=== PATIENT | male | born 1980 | race Caucasian/White ===

== ENCOUNTER 2022-09-05 08:44 | Outpatient (CLI) | payer OTHER, SELFPAY ==
[2022-09-05 18:58] LABS: Alanine Aminotransferase 19 U/L (6-50); Alkaline Phosphatase 85 U/L (38-126); Anion Gap 3 mmol/L (8-16); Aspartate Amino Transferase 50 U/L (17-59); Bilirubin,Total 2.7 mg/dL (0.2-1.3); Blood Urea Nitrogen 13 mg/dL (9-20); Carbon Dioxide 31 mmol/L (22-30); Chloride 102 mmol/L (98-107); Cholesterol 143 mg/dL (0-200); Estimated Glomerular Filt Rate > 60; Glucose 92 mg/dL (65-110); HDL Direct 50 mg/dL; Potassium 4.3 mmol/L (3.4-5.0); Sodium 136 mmol/L (137-145); Triglycerides 96 mg/dL (<150)
[2022-09-05 19:09] LABS: LDL Cholesterol Direct 63 mg/dL
== END 2022-09-05 08:45 | disposition home or self-care (01) ==
LOC: ANHBWCLAB 08:45
PROVIDERS: PCP Family Medicine; Visit Provider Family Medicine
DX: Z00.00 Encounter for general adult medical examination without abnormal findings (principal)
CPT/HCPCS: 36415; 80053; 80061

== ENCOUNTER 2024-12-04 16:46 | Emergency (ER) | payer OTHER, SELFPAY ==
--- NOTE | ~2024-12-04 | XR_ITS ---
XR shoulder LT min 2V DATE: 12/04/2024 17:39 INDICATION: Left shoulder pain TECHNIQUE: 4 views COMPARISON: None FINDINGS: No fracture, dislocation, periosteal reaction or bone destruction. Normal alignment and pre servation of joint spaces at the acromioclavicular and glenohumeral joints. No abnormal soft tissue c alcification. IMPRESSION: Negative Reviewed, dictated and finalized at location A. IMPRESSION: Negative
--- NOTE | ~2024-12-04 | XR_ITS ---
XR_[id number]_CR DATE: 12/04/2024 17:40 INDICATION: Neck pain TECHNIQUE: AP, open-mouth, odontoid and lateral views COMPARISON: 11/18/2007 cervical spine FINDINGS: C1 and C2 are normally aligned and the odontoid process is intact. No fracture or dislocati on or locked facet or prevertebral soft tissue swelling. There is minimal loss of height at C5-6 inte rspace. Remaining cervical interspaces are well preserved. Bilateral uncovertebral joint spurring. There are plates and screws along the mandibular symphysis and both mandibular rami. Multiple plates and screws are noted at the facial bones as well. IMPRESSION: Mild loss of disc space height and bilateral uncovertebral joint spurring at C5-6 No fracture or dislocation or locked facet Postoperative change of the mandible and facial bones Reviewed, dictated and finalized at Location A. Reviewed, dictated and finalized at location A. IMPRESSION: Mild loss of disc space height and bilateral uncovertebral joint sp urring at C5-6 No fracture or dislocation or locked facet Postoperative change of the mandible and facial bones
--- OUTSIDE RECORDS SUMMARY | 2024-12-04 16:48 | XMS_ITS | Referral Summary ---
Author Organization [facility] [address] Address [address] [place] [address] Care Team Providers Care Manager Field Investigations Name Role Phone Arthur Marcus MD Primary Care Provider [phone] Allergies Active Allergy Reactions Criticality Noted Date Comments Cefazolin Rash Medium Penicillins Chest tightness,Headache Medium 12/19/2019 Vancomycin Rash Medium 12/19/2019 Medications No known medications Active Problems No known active problems Social History Tobacco Use Types Packs/Day Years Used Date Smoking Tobacco: Never Smokeless Tobacco: Never Personal Safety Answer Date Recorded Getting School Help Needed Not on file 11/28 Sex and Gender Information Value Date Recorded Sex Assigned at Not on file 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 Gender Identity Not on file Sexual Orientation Not on file Last Filed Vital Signs Vital Sign Reading Time Taken Comments Blood Pressure 128/84 12/19/2019 3:22 PM CDT Pulse 63 12/19/2019 3:22 PM CDT Temperature 36.7 C (98 F) 12/19/2019 3:22 PM CDT Respiratory Rate 12 12/19/2019 3:22 PM CDT Oxygen Saturation 99% 12/19/2019 3:22 PM CDT Inhaled Oxygen Concentration - - Weight 77.6 kg (171 lb) 12/19/2019 3:22 PM CDT Height 190.5 cm (6' 3 ) 12/19/2019 3:22 PM CDT Body Mass Index 21.37 12/19/2019 3:22 PM CDT Plan of Treatment Not on file Insurance AETNA SIG [id number] Care Teams Manager Field Investigations Relationship Specialty Start Date End Date Arthur Marcus MD [address] [place] [address] PCP - General Family Medicine 12/19/19
--- OUTSIDE RECORDS SUMMARY | 2024-12-04 16:48 | XMS_ITS | Continuity of Care Document ---
Author Organization [facility] Address [address] [place] [address] Phone Care Team Providers Care Head Loader Name Role Phone Lawson Cavazos MD Unavailable Unavailable Procedures Procedure Date Office Consultation Advance Directives Directive Yes / No Effective Date File Name No Information Encounters Encounter Description Practice Location Reason(s) For Visit Diagnoses Date Provider Providers Copied on Encounter Office Consultation [facility], [address], [place], [place], [id number], [place] tel:[phone] [facility] No Information [address] [facility] [place], [address], [place]. tel:[phone] Referring Provider: Black Atkins OD, [facility] [address] [place], [address]. tel:[phone] Family History Family Member Type Diagnosis Age At Onset No Information Payers Payer name Insurance type Covered alliance party ID Authoriza tion(s) No Information Social History [...]
--- OUTSIDE RECORDS SUMMARY | 2024-12-04 16:48 | XMS_ITS | Clinical Summary ---
Author Organization [facility] [address] Address [address] [place] [address] Care Team Providers Care Thermal Cutter Helper Name Role Phone Arthur Marcus MD Primary Care Provider [phone] Allergies Active Allergy Reactions Criticality Noted Date Comments Cefazolin Rash Medium Penicillins Chest tightness,Headache Medium 12/19/2019 Vancomycin Rash Medium 12/19/2019 Medications No known medications Active Problems No known active problems Medical History Medical History Date Comments [place] (HCC) Social History Tobacco Use Types Packs/Day Years Used Date Smoking Tobacco: Never Smokeless Tobacco: Never Personal Safety Answer Date Recorded Getting School Help Needed Not on file 11/28 Sex and Gender Information Value Date Recorded Sex Assigned at Not on file 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
--- OUTSIDE RECORDS SUMMARY | 2024-12-04 16:51 | XMS_ITS | Continuity of Care Document ---
Author Organization [facility] Address [address] [place] [address] Phone Care Team Providers Care Steward/Stewardess Dining Room Name Role Phone Lawson Cavazos MD Unavailable Unavailable Procedures Procedure Date Office Consultation Advance Directives Directive Yes / No Effective Date File Name No Information Encounters Encounter Description Practice Location Reason(s) For Visit Diagnoses Date Provider Providers Copied on Encounter Office Consultation [facility], [address], [place], [place], [id number], [place] tel:[phone] [facility] No Information [address] [facility] [place], [address], [place]. tel:[phone] Referring Provider: Black Atkins OD, [facility] [address] [place], [address]. tel:[phone] Family History Family Member Type Diagnosis Age At Onset No Information Payers Payer name Insurance type Covered constitution party ID Authoriza tion(s) No Information Social [...]
[2024-12-04 16:54] VITALS: BP 133/81; PULSE 63; RESP 20; TEMP 36.7; O2SAT 99
--- NOTE | 2024-12-04 17:31 | ED_ITS ---
HPI - Extremity Problem General Chief complaint: Extremity Problem,Nontraumatic Stated complaint: left shoulder and neck pain Source: patient and family Mode of arrival: ambulatory Limitations: no limitations History of Present Illness HPI Narrative: Patient presents for evaluation of left-sided neck and left shoulder pain. Symptom onset 3 days ago. He woke from sleep with his symptoms. He has rooms he slept on his neck wrong. States the pain is shooting and he rates it 7/10 in severity. No history of similar symptoms. 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 With that said, he is not aware of any specific precipitating injury. He tried taking Aleve for symptoms without considerable improvement thereafter. Movement makes his symptoms worse. He went to a chiropractor earlier today, who adjusted his neck. He reports decreased ROM of left shoulder. Related Data Allergies Allergy/AdvReac Type Severity Reaction Status Date / Time potassium chloride Allergy Intermediate Hives / Verified 12/04/24 17:04 Red Face Penicillins Allergy Mild tight chest Verified 12/04/24 17:04 paroxetine Allergy Unknown Nausea Verified 12/04/24 17:04 vancomycin Allergy Unknown unknown Verified 12/04/24 17:04 CEFAZOLIN SODIUM Allergy Unknown unknown Uncoded 08/06/22 10:04 Review of Systems Review of Systems: CONSTITUTIONAL: Denies fever, chills, or sweats. EYES: Denies visual changes, redness, or discharge. ENT: Denies rhinorrhea, congestion, sore throat, or otalgia. CARDIOVASCULAR: Denies chest pain, palpitations, or edema. RESPIRATORY: Denies cough or dyspnea. GASTROINTESTINAL: Denies abdominal pain, nausea, vomiting, or diarrhea. GENITOURINARY: Denies dysuria or hematuria. SKIN: Denies rash or itching. MUSCULOSKELETAL: Reports left-sided neck pain and left shoulder pain. NEUROLOGIC: Denies headache, numbness, dizziness, or weakness. PSYCHIATRIC: Denies anxiety or depression. [facility] Past Medical History Medical History History of cancer History of facial fracture Surgical History Surgical History History of facial surgery Family History Family History Grandparent Diabetes mellitus Social History Social History Smoking status: Never smoker Second hand tobacco smoke exposure: No Alcohol intake: current Alcohol use details: Beer Substance use type: does not use Lack of Transportation: No Lack of Food: Never True Current Housing: I Do Not Have Housing Concerned About Future Housing: No Difficulty Paying Gas/Electric Bills: No Difficulty Paying for Meds: No Currently Unemployed: No Education: Associate Degree Difficulty w/ Childcare or Family Care: No Living arrangements: alone Occupation/Education: occupation Additional occupation/education comments: [employer] Gender identity (if verbalized by the patient): Male Agree to blood products: Yes Exam Narrative: GENERAL: Well-appearing, well-nourished, and in no acute distress. HEAD: Normocephalic, atraumatic. EYES: PERRLA and EOMI. ENT: Nares clear, no rhinorrhea or epistaxis. Mucous membranes moist. Oropharynx without tonsillar hypertrophy exudate or other lesions. Bilateral TMs pearly recio nonbulging NECK: Supple. No adenopathy or masses. No carotid bruits or JVD. No tenderness in the midline or paraspinous muscles of the cervical spine CHEST: Clear to auscultation. No respiratory distress. No wheezes rales or rh onchi HEART: Regular rate and rhythm. No murmur heard. Normal peripheral pulses. ABDOMEN: Soft, nontender, nondistended, normal active bowel sounds. EXTREMITIES: Tenderness in the left shoulder. There is decreased range of motion left shoulder secondary to pain. There is no crepitus or deformity. SKIN: Warm, dry, no rash. NEURO: No focal deficits. Alert and oriented x3. PSYCH: Normal mood and affect. Course Course Emergency Course: This is a 44-year-old male who presented for evaluation of neck and shoulder pain. X-ray showed bone spurs in the cervical spinal region with some loss of bone height. He has already tried NSAIDs at home. Will try Medrol Dosepak and Flexeril. Advised on application of warm moist heat. Topical products such as Chun-Peng or icy Hot may help. Follow with primary provider. Go to the emergency department for worsening symptoms. Patient agreement with plan of care. Level of Care: Express Care Visit Vital Signs Vital signs: Vital Signs Temperature 36.7 C 12/04/24 16:54 Pulse Rate 63 12/04/24 16:54 Respiratory Rate 20 12/04/24 16:54 Blood Pressure 133/81 12/04/24 16:54 Pulse Oximetry 99 12/04/24 16:54 Oxygen Delivery Room Air 12/04/24 16:54 Temperature 36.7 C 12/04/24 16:54 Pulse Rate 63 12/04/24 16:54 Respiratory Rate 20 12/04/24 16:54 Blood Pressure 133/81 12/04/24 16:54 Pulse Oximetry 99 12/04/24 16:54 Oxygen Delivery Room Air 12/04/24 16:54 MDM - Extremity (Nontraumatic) Imaging Data Radiologist's impression: [id number]_[id number] DATE: 12/04/2024 17:40 INDICATION: Neck pain TECHNIQUE: AP, open-mouth, odontoid and lateral views COMPARISON: 11/18/2007 cervical spine FINDINGS: C1 and C2 are normally aligned and the odontoid process is intact. No fracture or dislocation or locked facet or prevertebral soft tissue swelling. T here is minimal loss of height at C5-6 interspace. Remaining cervical interspaces are well preserved. Bilateral uncovertebral joint spurring. There are plates and screws along the mandibular symphysis and both mandibular rami. Multiple plates and screws are noted at the facial bones as well. IMPRESSION: Mild loss of disc space height and bilateral uncovertebral joint spurring at C5-6 No fracture or dislocation or locked facet Postoperative change of the mandible and facial bones XR shoulder LT min 2V DATE: 12/04/2024 17:39 INDICATION: Left shoulder pain TECHNIQUE: 4 views COMPARISON: None FINDINGS: No fracture, dislocation, periosteal reaction or bone destruction. Normal alignment and preservation of joint spaces at the acromioclavicular and glenohumeral joints. No abnormal soft tissue calcification. IMPRESSION: Negative Discharge Plan Discharge Clinical Impression: Cervical radiculopathy Patient Disposition: Home, Self-Care Condition: Stable Instructions: Antibiotic Form, Cervical Radiculopathy (ED) Patient Language: [place] Citizen Prescriptions: New methylprednisolone 4 mg tablets,dose pack See Rx Instructions .ROUTE .COMPLEX Qty: 21 0RF Rx Instructions: for 6 days cyclobenzaprine 10 mg tablet 10 mg PO TID PRN (Reason: muscle spasm) Qty: 15 0RF Follow-up/Referrals: Black Phan MD [Primary Care Provider] - Stand Alone Forms: Work/School Release IP Time of Disposition: 17:58
== END 2024-12-04 18:03 | disposition home or self-care (01) ==
PROVIDERS: Emergency Provider Nurse Practitioner; PCP Family Medicine
DX: M54.12 Radiculopathy, cervical region (principal)
CPT/HCPCS: 72040; 73030; 99214; G0463

== ENCOUNTER 2025-01-11 09:18 | Outpatient (CLI) | payer OTHER, SELFPAY ==
--- NOTE | ~2025-01-11 | XR_ITS ---
3 VIEWS LUMBAR SPINE Ordering provider: Black Phan MD History: . M54.50 - Low back pain, unspecified . Comparison: None. FINDINGS: VERTEBRAL BODIES: Loss of height is seen in L3 which may indicate acute or chronic fracture. .. Posto perative changes with levoscoliosis. DISK SPACES: Normal. SOFT TISSUES: Normal. IMPRESSION: Compression fracture of L3 which may be acute or chronic. Postoperative changes at the levels of T12, L1 and L2. Reviewed, dictated and finalized at location A.
== END 2025-01-11 09:19 | disposition home or self-care (01) ==
PROVIDERS: PCP Family Medicine; Visit Provider Family Medicine
DX: S32.030A Wedge compression fracture of third lumbar vertebra, initial encounter for closed fracture (principal); X58.XXXA Exposure to other specified factors, initial encounter
CPT/HCPCS: 72100

== ENCOUNTER 2025-01-11 09:52 | Outpatient (CLI) | payer OTHER, SELFPAY ==
[2025-01-11 10:12] LABS: Basophils Absolute Auto 0.1 K/mm3 (0.0-0.1); Basophils Percent Auto 0.9 % (0.2-1.2); Eosinophils Absolute Auto 0.3 K/mm3 (0-0.3); Eosinophils Percent Auto 3.7 % (0-4.4); Hematocrit 48.2 % (42.0-52.0); Hemoglobin 15.7 g/dL (14.0-18.0); Immature Granulocyte Absolute 0.03 K/mm3 (0.00-0.031); Immature Granulocyte Percent A 0.4 % (0-0.5); Lymphocytes Absolute Auto 1.89 K/mm3 (0.9-3.2); Lymphocytes Percent Auto 24.2 % (18.3-44.2); Mean Corpuscular HGB Conc 32.6 g/dl (32-36); Mean Corpuscular Hemoglobin 29.9 pg (26-34); Mean Corpuscular Volume 91.8 fl (80-100); Mean Platelet Volume 9.7 fl (7.4-10.4); Monocytes Absolute Auto 0.6 K/mm3 (0.1-0.6); Monocytes Percent Auto 7.4 % (2.6-8.5); Neutrophils Absolute Auto 4.9 K/mm3 (1.3-6.7); Neutrophils Percent Auto 63.4 % (45.5-73.1); Platelet Count Result 336 k/mm3 (150-375); Red Blood Count 5.25 M/mm3 (4.6-6.20); Red Cell Distribution Width 12.9 % (11.5-14.5); White Blood Count 7.8 K/mm3 (4.5-10.0)
[2025-01-11 10:23] LABS: Alanine Aminotransferase 24 U/L (6-50); Albumin Level 4.4 g/dL (3.5-5.1); Alkaline Phosphatase 107 U/L (38-126); Anion Gap 7 mmol/L (4-12); Aspartate Amino Transferase 26 U/L (17-59); Bilirubin,Total 2.6 mg/dL (0.2-1.3); Blood Urea Nitrogen 18 mg/dL (9-20); Calcium 9.4 mg/dL (8.4-10.2); Carbon Dioxide 29 mmol/L (22-30); Chloride 104 mmol/L (98-107); Cholesterol 155 mg/dL (0-200); Estimated Glomerular Filt Rate > 60; Glucose 95 mg/dL (65-110); HDL Direct 51 mg/dL; Potassium 4.2 mmol/L (3.4-5.0); Sodium 140 mmol/L (137-145); Triglycerides 103 mg/dL (<150)
[2025-01-11 10:34] LABS: LDL Cholesterol Direct 70 mg/dL
--- OUTSIDE RECORDS SUMMARY | 2025-01-11 11:02 | XMS_ITS | Referral Summary ---
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
--- OUTSIDE RECORDS SUMMARY | 2025-01-11 11:02 | XMS_ITS | Continuity of Care Document ---
Author Organization [facility] Address [address] [place] [address] Phone Care Team Providers Care Jira Administrator Name Role Phone Lawson Cavazos MD Unavailable Unavailable Procedures Procedure Date Office Consultation Advance Directives Directive Yes / No Effective Date File Name No Information Encounters Encounter Description Practice Location Reason(s) For Visit Diagnoses Date Provider Providers Copied on Encounter [facility] [address], [place], [place], [address], [place] tel:[phone] [facility] No Information [address] [facility] [place], [address], [place]. tel:[phone] Referring Provider: Black Atkins OD, [facility] [address] [place], [address]. tel:[phone] Family History Family Member Type Diagnosis Age At Onset No Information Payers Payer name Insurance type Covered libertarian ID Authoriza tion(s) No Information Social History [...]
--- OUTSIDE RECORDS SUMMARY | 2025-01-11 11:02 | XMS_ITS | Clinical Summary ---
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
== END 2025-01-11 09:53 | disposition home or self-care (01) ==
LOC: ANHLAB 09:54
PROVIDERS: PCP Family Medicine; Visit Provider Family Medicine
DX: D47.3 Essential (hemorrhagic) thrombocythemia (principal); Z79.899 Other long term (current) drug therapy; Z85.9 Personal history of malignant neoplasm, unspecified; Z00.00 Encounter for general adult medical examination without abnormal findings
CPT/HCPCS: 36415; 80053; 80061; 85025

== ENCOUNTER 2025-06-26 19:22 | Emergency (ER) | payer OTHER, SELFPAY ==
--- OUTSIDE RECORDS SUMMARY | 2008-06-21 04:00 | XMS_ITS | Continuity of Care Document ---
Author Organization [facility] Address [address] [place] [address] Phone Care Team Providers Care Funeral Pre Arrangement Counselor Name Role Phone Lawson Cavazos MD Unavailable Unavailable Procedures Procedure Date Office Consultation Advance Directives Directive Yes / No Effective Date File Name No Information Encounters Encounter Description Practice Location Reason(s) For Visit Diagnoses Date Provider Providers Copied on Encounter Office Consultation [facility], [address], [place], [place], [id number], [place] tel:[phone] [facility] No Information [address] [facility] [place], [address], [place]. tel:[phone] Referring Provider: Black tAkins OD, [facility] [address] [place], [address]. tel:[phone] Family History Family Member Type Diagnosis Age At Onset No Information Payers Payer name Insurance type Covered republican ID Authoriza tion(s) No Information Social History Type Description Quantity Date Captured Comments Sex Male Smoking Status No Information Chief Complaint And Reason For Visit No Information Reason For Referral Reason For Referral No Information History Of Present Illness Encounter Date Complaint History Of Prese nt Illness No Information Functional Status Date Functional Assessmen t No Information Instructions Date Instruction Additional Infor mation No Information Assessments Type Assessment Date No Information Patient Care Teams Name Effective Dates (start - stop) Status Members No Information
--- OUTSIDE RECORDS SUMMARY | 2008-06-21 04:00 | XMS_ITS | Continuity of Care Document ---
Author Organization [facility] Address [address] [place] [address] Phone Care Team Providers Care Supervisor Motorcycle Repair Shop Name Role Phone Lawson Cavazos MD Unavailable Unavailable Procedures Procedure Date Office Consultation Advance Directives Directive Yes / No Effective Date File Name No Information Encounters Encounter Description Practice Location Reason(s) For Visit Diagnoses Date Provider Providers Copied on Encounter Office Consultation [facility], [address], [place], [place], [id number], [place] tel:[phone] [facility] Professional No Information [address] [facility] [place], [place], [address], [place]. tel:[phone] Referring Provider: Black Atkins OD, [facility] [address] [place], [address]. tel:[phone] Family History Family Member Type Diagnosis Age At Onset No Information Payers Payer name Insurance type Covered democrat ID Authoriza tion(s) No Information Social History [...]
--- OUTSIDE RECORDS SUMMARY | 2025-06-26 19:24 | XMS_ITS | Clinical Summary ---
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
--- OUTSIDE RECORDS SUMMARY | 2025-06-26 19:24 | XMS_ITS ---
Author Organization Unknown ENCOUNTERS Encounter Performer Location Date Diagnosis Diagnosis Status Outpatient [facility] [address] [place] [address] [id number] DEB Outpatient [facility] [address] [place] [address] [id number] DEB *Note: Encounters from your own facility or health system may be excluded. Allergies, Adverse Reactions, Alerts Allergen Type Severity Identification Date Penicillins drug allergy 2 20220806 paroxetine drug allergy 3 20220806 vancomycin drug allergy 3 20220806 potassium chloride drug allergy 3 20220806 Medications Name Date Quantity Days Supplied [facility] Number
[2025-06-26 20:00] VITALS: BP 120/65; PULSE 83; RESP 18; TEMP 36.6; O2SAT 100
--- NOTE | 2025-06-26 20:33 | PC.NURSE ---
2032-PATIENT ELECTS NOT TO WAIT ANY LONGER. ADVISED PATIENT TO STAY BUT DECLINES. ADVISED PATIENT TO RETURN AT ANY TIME.
== END 2025-06-26 20:58 | disposition left against medical advice (07) ==
LOC: ANHED 20:56
PROVIDERS: PCP Family Medicine
DX: R51.9 Headache, unspecified (principal)
CPT/HCPCS: 99199